=== PATIENT | female | born 1960 | race Caucasian/White ===

== ENCOUNTER 2018-03-21 07:17 | Day surgery (SDC) | payer BC ==
[2018-03-14 13:09] VITALS: BMI 20.9
[2018-03-21 07:35] VITALS: TEMP 97.7
[2018-03-21] MEDS ORDERED: PROPOFOL 20 ML ONE ×2 (08:12)
[2018-03-21] MEDS ORDERED: LIDOCAINE HCL/PF 2% SDV 5ML VIAL ONE (08:12)
[2018-03-21 09:11] VITALS: BP 103/59; PULSE 61
== END 2018-03-21 09:20 | disposition home or self-care (01) ==
LOC: FASU-ENDO 07:17
PROVIDERS: ATTEND Internal Medicine Gastroenterology
PROC: 0DJ08ZZ Inspection of Upper Intestinal Tract, Via Natural or Artificial Opening Endoscopic (ICD-10-PCS; principal; 2018-03-21 08:27)
DX: R93.3 Abnormal findings on diagnostic imaging of other parts of digestive tract (principal)